=== PATIENT | male | born 1955 | race Caucasian/White ===

== ENCOUNTER → 2025-04-12 14:34 | Outpatient (REF) | payer MEDICARE, OTHER, SELFPAY | LOC: RCS 14:34 | PROVIDERS: ATTENDING PHYSICIAN Nuclear Medicine Nuclear Cardiology; FAMILY PHYSICIAN Internal Medicine | DX: I25.10 Atherosclerotic heart disease of native coronary artery without angina pectoris (principal); Z98.890 Other specified postprocedural states; R07.9 Chest pain, unspecified; R00.2 Palpitations | CPT/HCPCS: 93306 ==

== ENCOUNTER → 2025-04-15 07:26 | Outpatient (REF) | payer MEDICARE, OTHER, SELFPAY | LOC: RCS 07:26 | PROVIDERS: ATTENDING PHYSICIAN Nuclear Medicine Nuclear Cardiology; FAMILY PHYSICIAN Internal Medicine | DX: I25.10 Atherosclerotic heart disease of native coronary artery without angina pectoris (principal); Z98.890 Other specified postprocedural states; R07.9 Chest pain, unspecified; R00.2 Palpitations | CPT/HCPCS: 78452; 93017; A9500 ==

== ENCOUNTER 2025-05-31 18:16 | Emergency (ER) | payer MEDICARE, OTHER, SELFPAY ==
[2025-05-31 18:19] VITALS: BP 163/79
--- NOTE | 2025-05-31 18:22 | ED.GENMED ---
ED Provider Triage
<Marcelina Adler PA-C - Last Filed: 05/31/25 18:23>
-
Patient seen by provider in Triage?: Seen in Triage
Attestation: A medical screening examination has been initiated by a qualified medical provider. Based on the assessment performed at this time, it has been determined that an emergent medical condition may exist and the patient has been informed
that further medical evaluation and possible additional diagnostic testing may be needed.
HPI: 69yoM here with R flank pain that started at 2pm. Noticed pink urine first. Urine now bloody. Hx of kidney stones.
GENERAL: Alert , in no apparent distress
EYE: No visual abnormalities.
NECK: Trachea midline
ENT: No visible abnormalities.
LUNGS: No acute respiratory distress
NEUROLOGICAL: Alert and oriented
SKIN: Skin intact. No visible changes.
MUSCULOSKELETAL: Moving extremities normally
PSYCH: Normal and appropriate interaction.
This is a medical evaluation conducted in person to initiate diagnostic evaluation and provide initial therapeutics. Please see further documentation by the treating clinician.
CBC, CMP, UA, and CT abdomen without contrast ordered. He declines analgesics in triage.
History of Present Illness
<Marcelina Adler PA-C - Last Filed: 05/31/25 18:23>
General
Chief Complaint: Flank Pain
Time Seen by Provider: 05/31/25 23:05
<Shaun Kumari Jr., PA-C - Last Filed: 06/01/25 00:29>
General
Source: patient and spouse
Exam Limitations: none
Nursing documentation reviewed up to this point in time: agreed with
History of Present Illness
History of Present Illness:
69-year-old male past medical history of previous kidney stones diabetes, hypertension heart disease presenting to the emergency department today with concerns of right-sided flank pain over the past few hours red-tinged urine. Had similar symptoms
in the past when he had a kidney stone. Denies additional concerns no fevers.
Past History
<Marcelina Adler PA-C - Last Filed: 05/31/25 18:23>
Past History
ED Past Medical History: CAD, HTN, Hypercholesterolemia, NIDDM and Other
ED Past Surgical History: Other (Hernia repair X3, Vascular surgery right leg with sent and Ballooning behing right knee)
Social History
Tobacco: Non-smoker
Alcohol: None
Personal:
Living: with family
Employment: Employed
Family History
Family History: CAD (The patient has a brother that had coronary artery disease)
Review of Systems
<Shaun Kumari Jr., PA-C - Last Filed: 06/01/25 00:29>
Review of Systems
Allergies reviewed?: Yes
All Other Systems: ROS reviewed and negative except as documented in HPI and ROS
Phy Exam
<Shaun Kumari Jr., PA-C - Last Filed: 06/01/25 00:29>
Physical Exam
Physical Exam:
GENERAL: Alert , in no apparent distress
EYE: pupils equal and reactive
NECK: Supple, no significant adenopathy.
ENT: o/p clr, mmm.
CARDIAC: Regular rate and rhythm .
LUNGS: Clear breath sounds bilaterally, no acute respiratory distress, no wheezes/rales/rhonchi
ABDOMEN: Soft, without focal tenderness, no r/g, no cvat
NEUROLOGICAL: Alert and oriented, no focal neuro deficits
SKIN: Warm and dry, skin intact.
MUSCULOSKELETAL: No edema, well perfused.
PSYCH: Normal and appropriate interaction.
Course
<Marcelina Adler PA-C - Last Filed: 05/31/25 18:23>
Orders/Labs/Results
Orders:
Orders
05/31/25 18:21
CT Abd/pel Without Iv Or Oral Urgent
Comment:
Reason For Exam: R flank pain
05/31/25 18:30
Complete Blood Count/With Diff Urgent
Comprehensive Metabolic Panel Urgent
05/31/25 18:32
Urinalysis Reflex To Culture Urgent
Date Specimen was Collected: 05/31/25
Time Specimen was Collected: 18:31
Urine Microscopic Reflex Cult Urgent
Urine Culture Urgent
INDIA Source: U
Specimen Description:
Date Specimen was Collected: 05/31/25
Time Specimen was Collected: 18:31
05/31/25 19:18
Oxycodone/Acetaminophen [Percocet 5/325] 1 tablet PO NOW STA
Abnormal Lab Results
05/31/25 05/31/25
18:30 18:32
Absolute Monos (auto) 1.0 H 10^3/uL
(0.1-0.6)
Monocytes % 10.4 H %
(1.7-9.3)
BUN 34 H mg/dl
(9-20)
Creatinine 1.4 H mg/dL
(0.7-1.3)
Glucose 116 H mg/dl
(70-99)
Ur Occult Blood Reflex 4+ A
(Negative)
Leukocyte Esterase Rfl 1+ A
(Negative)
Urine RBC >100 A /HPF
(0-2)
Urine Bacteria (Reflex) Many A
(Negative)
Urine Albumin (Reflex) 3+ A
(Neg - Trace)
05/31/25 18:30
05/31/25 18:30
Vital Signs
Initial and Last Documented VS:
Initial Vital Signs
Temp Pulse Resp BP Pulse Ox
98.5 F 61 16 163/79 100
05/31/25 18:19 05/31/25 18:19 05/31/25 18:19 05/31/25 18:19 05/31/25 18:19
Last Documented Vital Signs
Temp Pulse Resp BP Pulse Ox
98.5 F 67 14 160/81 96
05/31/25 18:19 05/31/25 21:52 05/31/25 21:52 05/31/25 22:36 05/31/25 22:38
<Shaun Kumari Jr., PA-Tyrese - Last Filed: 06/01/25 00:29>
Orders/Labs/Results
Orders:
Orders
05/31/25 18:21
CT Abd/pel Without Iv Or Oral Urgent
Comment:
Reason For Exam: R flank pain
05/31/25 18:30
Complete Blood Count/With Diff Urgent
Comprehensive Metabolic Panel Urgent
05/31/25 18:32
Urinalysis Reflex To Culture Urgent
Date Specimen was Collected: 05/31/25
Time Specimen was Collected: 18:31
Urine Microscopic Reflex Cult Urgent
Urine Culture Urgent
INDIA Source: U
Specimen Description:
Date Specimen was Collected: 05/31/25
Time Specimen was Collected: 18:31
05/31/25 19:18
Oxycodone/Acetaminophen [Percocet 5/325] 1 tablet PO NOW STA
Abnormal Lab Results
05/31/25 05/31/25
18:30 18:32
Absolute Monos (auto) 1.0 H 10^3/uL
(0.1-0.6)
Monocytes % 10.4 H %
(1.7-9.3)
BUN 34 H mg/dl
(9-20)
Creatinine 1.4 H mg/dL
(0.7-1.3)
Glucose 116 H mg/dl
(70-99)
Ur Occult Blood Reflex 4+ A
(Negative)
Leukocyte Esterase Rfl 1+ A
(Negative)
Urine RBC >100 A /HPF
(0-2)
Urine Bacteria (Reflex) Many A
(Negative)
Urine Albumin (Reflex) 3+ A
(Neg - Trace)
05/31/25 18:30
05/31/25 18:30
Vital Signs
Initial and Last Documented VS:
Initial Vital Signs
Temp Pulse Resp BP Pulse Ox
98.5 F 61 16 163/79 100
05/31/25 18:19 05/31/25 18:19 05/31/25 18:19 05/31/25 18:19 05/31/25 18:19
Last Documented Vital Signs
Temp Pulse Resp BP Pulse Ox
98.5 F 67 14 160/81 96
05/31/25 18:19 05/31/25 21:52 05/31/25 21:52 05/31/25 22:36 05/31/25 22:38
<Shaun Kumari Jr., PA-C - Last Filed: 06/01/25 00:29>
MDM/Problems Addressed
MDM/Problems Addressed:
6-year-old male presenting to the emergency department today with concerns of right flank pain hematuria over the past few hours. Was found of a 2 mm stone likely causing symptoms. Slight elevation in creatinine level but otherwise is urinating
well and tolerating by mouth. Blood pressure slightly elevated but otherwise vital signs are normal. Urinalysis without evidence of infection. He was given Percocet rather than an NSAID considering he does take Plavix and has heart disease. He
was advised be careful with this medication otherwise is stable for follow-up with urology. Return precautions given.
<Marcelina Adler PA-C - Last Filed: 05/31/25 18:23>
*Pulse Oximetry
SaO2: 100
Oxygen Mode of Delivery: Room air
<Shaun Kumari Jr., PA-C - Last Filed: 06/01/25 00:29>
*Pulse Oximetry
Patient hypoxic: no (96)
*Critical Care Note
Total Time (30-74mins, 75-104mins- exclusive of procedures): Not Applicable
ED Attending Note
<Marcelina Adler PA-C - Last Filed: 05/31/25 18:23>
-
Portions of this chart may have been created with voice recognition software.� Occasional wrong word or��sound alike� substitutions may have occurred due to the inherent limitations of voice recognition software.
Discharge Plan
Departure
Patient Disposition: Home (Routine Discharge)
Date of Disposition: 06/01/25
Time of Disposition: 00:24
Patient with high blood pressure during this ER visit?: No
Condition: Good
Covid-19: Not Applicable
Discharge Problem:
Kidney stone
Instructions: Kidney Stones (DC), How to Strain Your Urine
Prescriptions:
New
oxycodone-acetaminophen [Endocet] 5-325 mg tablet
1 tab PO Q8H PRN (Reason: Pain) Qty: 7 0RF
No Action
escitalopram oxalate [Lexapro] 5 MG tablet
5 mg PO QPM
isosorbide mononitrate 60 MG tablet extended release 24 hr
30 mg PO DAILY
amlodipine 5 MG tablet
5 mg PO BID
clopidogrel 75 MG tablet
75 mg PO DAILY 0RF
aspirin 81 MG tablet,delayed release (DR/EC)
81 mg PO QPM
fish oil-dha-epa 1 EACH capsule
1 ea PO BID
atorvastatin 40 MG tablet
40 mg PO QPM
repaglinide 2 MG tablet
2 mg PO MEALS
enalapril maleate 20 MG tablet
20 mg PO BID
metformin 1,000 MG tablet
1,000 mg PO BID Qty: 0 0RF
Rx Instructions:
Do not restart until 03/09/21
Referrals:
Maurizio Westbrook I., DO [Family Provider, Internal Medicine]
Leon Connolly MD [Active, Urology] - Follow up in 5-7 days
Activity Restrictions/Additional Instructions:
You came to the emergency department today with concerns of flank pain. You are found to have a kidney stone. Please stay hydrated and take the pain medication as prescribed. Please be careful taking the medication as this can cause drowsiness.
Please follow closely with urology. Return for any worsening, new or concerning symptoms.
Interventions
Interventions:
*Risk Screen - Suicide Last Done: 05/31/25 22:32
*General Assessment Last Done: 05/31/25 22:32
*Neglect/Abuse Screening Last Done: 05/31/25 22:32
*ED- Fall Risk Assessment Last Done: 05/31/25 22:32
*ED COVID-19 Vaccine History Last Done: 05/31/25 22:32
PD-Czbqds-Kyamxwvnsw Assessment Last Done: 05/31/25 22:32
ED-Male Genitourinary Assessment Last Done: 05/31/25 22:32
Discharge Date and Time
Print Language: SERBIAN
[2025-05-31 18:41] LABS: Hematocrit 42.3 % (39.0-52.0); Hemoglobin 14.4 g/dL (13.0-18.0); Mean Corp Hgb Conc. 34.0 g/dL (33.0-37.0); Mean Corpuscular Volume 88.7 fL (80.0-94.0); Nucleated Red Blood Cells % 0 % (-); Platelet Count 212 10^3/uL (130-400); Red Cell Dist. Width 12.4 % (11.5-14.5)
[2025-05-31 18:51] LABS: Urine Character Slightly Cloudy (Clear)
[2025-05-31 18:55] LABS: ALT (SGPT) 18 U/L (0-50); AST (SGOT) 19 U/L (17-59); Albumin 5.0 g/dl (3.5-5.0); Alkaline Phosphatase 77 U/L (38-126); Blood Urea Nitrogen 34 mg/dl (9-20); Calcium 9.4 mg/dl (8.4-10.2); Carbon Dioxide 26 mmol/L (22-30); Chloride 106 mmol/L (98-107); Glucose 116 mg/dl (70-99); Potassium 4.7 mmol/L (3.5-5.1); Sodium 141 mmol/L (135-145); Total Protein 7.6 g/dl (6.3-8.2); eGFR 54.07
[2025-05-31] MEDS: PERCOCET 5/325 1 TABLET PO (19:23)
[2025-05-31 19:39] LABS: Urine Red Blood Cell >100 /HPF (0-2); Urine Squamous Cell 0-2 /LPF (Few)
[2025-05-31 21:52] VITALS: BP 159/77
[2025-05-31 22:36] VITALS: BP 160/81
[2025-06-01 00:43] VITALS: BP 164/66
== END 2025-06-01 00:45 | disposition home or self-care (01) ==
LOC: EMR 18:16
PROVIDERS: Physician Assistant; EMERGENCY PHYSICIAN Emergency Medicine; FAMILY PHYSICIAN Internal Medicine
DX: N20.0 Calculus of kidney (principal); E11.9 Type 2 diabetes mellitus without complications; E78.00 Pure hypercholesterolemia, unspecified; I10 Essential (primary) hypertension; I25.10 Atherosclerotic heart disease of native coronary artery without angina pectoris; Z82.49 Family history of ischemic heart disease and other diseases of the circulatory system; Z87.442 Personal history of urinary calculi
CPT/HCPCS: 99284; 74176; 80053; 81003; 81015; 85025; 87086

== ENCOUNTER → 2025-06-09 08:07 | Outpatient (REF) | payer MEDICARE, OTHER, SELFPAY | LOC: HWRAD 08:07 | PROVIDERS: ATTENDING PHYSICIAN Surgery; FAMILY PHYSICIAN Internal Medicine | DX: N20.0 Calculus of kidney (principal) | CPT/HCPCS: 74176 ==